=== PATIENT | female | born 1960 | race Caucasian/White ===

== ENCOUNTER 2016-07-29 12:15 | Outpatient (CLI) | payer OTHER | END 2016-07-29 12:16 | disposition home or self-care (01) | DX: M48.06 Spinal stenosis, lumbar region (principal); M51.16 Intervertebral disc disorders with radiculopathy, lumbar region ==

== ENCOUNTER 2017-03-20 08:22 | Outpatient (CLI) | payer OTHER ==
[2017-03-20 09:21] LABS: HCT - HEMATOCRIT 39.9 % (37.0-47.0); HGB - HEMOGLOBIN 13.4 g/dL (12.0-16.0); MEAN CORPUSCULAR HEMOGLOBIN 28.8 pg (27.0-31.0); MEAN CORPUSCULAR HGB CONC 33.7 g/dL (32.0-36.0); MEAN CORPUSCULAR VOLUME 85.5 fL (81.0-99.0); RED BLOOD COUNT 4.66 10^6/uL (4.20-5.40); RED CELL DISTRIBUTION WIDTH 13.3 % (12.0-15.0); WHITE BLOOD COUNT 8.7 x10^3/uL (4.8-10.8)
== END 2017-03-20 08:23 | disposition home or self-care (01) ==
LOC: LAB 08:22
PROVIDERS: ATTEND Orthopaedic Surgery
DX: Z01.812 Encounter for preprocedural laboratory examination (principal)
CPT/HCPCS: 36415

== ENCOUNTER 2017-07-31 19:08 | Outpatient (CLI) | payer OTHER ==
--- NOTE | 2017-08-01 10:49 | Ultrasound Report ---
DATE OF SERVICE: 07/31/2017 THYROID ULTRASOUND: 07/31/2017 CLINICAL INDICATION: Followup thyroid nodules. TECHNIQUE: Real-time scanning was performed with personal financial representative static images obtained. COMPARISON: 12/08/2015 FINDINGS: The right lobe measures 5.0 x 1.7 x 1.6 cm, and the left lobe measures 4.7 x 2.1 x 2.0 cm. Multiple tiny cysts are again noted bilaterally. The spongiform nodule in the left upper pole now measures 2.1 x 1.3 x 1.2 cm. No new suspicious lesion is identified. IMPRESSION: Stable thyroid cysts and spongiform nodule in the upper pole of the left lobe. No significant interval change from 12/08/2015. TD: 08/01/2017 11:48
== END 2017-07-31 19:09 | disposition home or self-care (01) ==
LOC: DI 19:08
PROVIDERS: ATTEND Internal Medicine Endocrinology, Diabetes & Metabolism
DX: E04.2 Nontoxic multinodular goiter (principal)
CPT/HCPCS: 76536

== ENCOUNTER 2017-08-14 07:59 | Outpatient (CLI) | payer OTHER ==
[2017-08-14 08:20] LABS: BASOPHILS # (AUTO) 0.1 10^3/uL (0.0-0.1); BASOPHILS % (AUTO) 1.2 %; EOSINOPHILS # (AUTO) 0.2 10^3/uL (0.0-0.7); EOSINOPHILS % (AUTO) 1.9 %; HGB - HEMOGLOBIN 13.3 g/dL (12.0-16.0); LYMPHOCYTES # (AUTO) 2.4 10^3/uL (1.5-3.5); LYMPHOCYTES % (AUTO) 25.8 %; MEAN CORPUSCULAR HEMOGLOBIN 28.8 pg (27.0-31.0); MEAN CORPUSCULAR HGB CONC 33.9 g/dL (32.0-36.0); MEAN CORPUSCULAR VOLUME 84.9 fL (81.0-99.0); MEAN PLATELET VOLUME 7.8 fL (7.9-10.8); MONOCYTES # (AUTO) 0.6 10^3/uL (0.0-1.0); NEUTROPHILS # (AUTO) 5.8 10^3/uL (1.5-6.6); NEUTROPHILS % (AUTO) 64.1 %; PLT - PLATELET COUNT 343 10^3/uL (130-450); RED BLOOD COUNT 4.61 10^6/uL (4.20-5.40); RED CELL DISTRIBUTION WIDTH 13.7 % (12.0-15.0); WHITE BLOOD COUNT 9.1 x10^3/uL (4.8-10.8)
[2017-08-14 08:42] LABS: ALBUMIN/GLOBULIN RATIO 1.2 (1.0-2.2); ALKALINE PHOSPHATASE 70 IU/L (42-121); ALT ALANINE AMINOTRANSFERASE 25 IU/L (10-60); AST ASPARTATE AMINOTRANSFERASE 20 IU/L (10-42); BILIRUBIN,TOTAL 0.5 mg/dL (0.2-1.0); BUN - BLOOD UREA NITROGEN 22 mg/dL (6-20); CALCIUM 9.6 mg/dL (8.5-10.3); CARBON DIOXIDE - CO2 25 mmol/L (21-32); CHLORIDE 104 mmol/L (101-111); CHOL/HDL RATIO 3.6 (<4.4); CHOLESTEROL 203 mg/dL; CREATININE 0.8 mg/dL (0.4-1.0); GFR - MDRD 74 (>89); GLUCOSE 103 mg/dL (70-100); HDL CHOLESTEROL 56 mg/dL; LDL CHOLESTEROL,CALCULATED 132 mg/dL; LDL/HDL RATIO 2.4 (<4.4); SODIUM 139 mmol/L (135-145); TOTAL PROTEIN 7.3 g/dL (6.7-8.2); VLDL CHOLESTEROL 15 mg/dL
== END 2017-08-14 08:00 | disposition home or self-care (01) ==
LOC: LAB 07:59
PROVIDERS: ATTEND Nurse Practitioner Primary Care
DX: M81.0 Age-related osteoporosis without current pathological fracture (principal); E55.9 Vitamin D deficiency, unspecified; Z79.899 Other long term (current) drug therapy; E04.2 Nontoxic multinodular goiter; E78.5 Hyperlipidemia, unspecified
CPT/HCPCS: 36415; 80053; 80061; 82306; 83721; 84443; 85025

== ENCOUNTER 2017-08-14 10:21 | Emergency (ER) | payer OTHER ==
[2017-08-14 10:29] VITALS: BP 148/96
--- NOTE | 2017-08-14 10:55 | ED Physician Documentation ---
PD HPI CHEST PAIN - Stated complaint Stated Complaint: CHEST DISCOMFORT - Chief complaint Chief Complaint: Cardiac - History obtained from History obtained from: Patient - History of Present Illness Timing - onset: How many days ago (2) Timing - onset during: Rest Timing - duration: Days (2) Timing - details: Gradual onset, Still present Quality: Pressure, Indigestion Location: Substernal Radiation: Back Improved by: Rest Worsened by: Exertion, Movement Associated symptoms: Shortness of air, Diaphoresis, Feeling faint / dizzy Similar symptoms before: Has not had sx before Recently seen: Clinic - Additional information Additional information: Previously well 56-year-old female is sent to the emergency department by her primary care doctor after evaluation in the office with complaints of chest pain indigestion and diaphoresis and an electrocardiogram showing some masah- lateral T-wave inversions. She has not been ill with URI. She has a + family history with a brother that had bypass at 50 and both mother an father with stents. Review of Systems Constitutional: denies: Fever, Chills, Myalgias Eyes: denies: Decreased vision Ears: denies: Ear pain Nose: denies: Rhinorrhea / runny nose, Congestion Throat: denies: Sore throat Cardiac: reports: Chest pain / pressure. denies: Palpitations Respiratory: reports: Dyspnea. denies: Cough, Wheezing GI: denies: Abdominal Pain, Nausea, Vomiting : denies: Dysuria, Frequency Skin: denies: Rash, Lesions Musculoskeletal: reports: Back pain. denies: Neck pain, Extremity pain PD PAST MEDICAL HISTORY - Past Medical History Cardiovascular: None, High cholesterol Respiratory: Other Neuro: Headache/migraine Endocrine/Autoimmune: None GI: GERD : None HEENT: Chronic sinusitis Psych: Depression Musculoskeletal: Osteoporosis, Chronic back pain Derm: None Other Past Medical History: Thyroid nodule. 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, Hysterectomy - Present Medications Home Medications: Ambulatory Orders Medication Instructions Recorded Confirmed Alendronate [Fosamax] 1 tab PO ONCE 05/12/16 05/12/16 B Complex with Vitamin C [Vitamin 1 tab PO DAILY 05/12/16 05/15/16 B-Complex with Vit C] Calcium Carbonate [Calcium] 1 tab PO BID 05/12/16 05/15/16 Cholecalciferol (Vitamin D3) 1 tab PO DAILY 05/12/16 05/15/16 [Vitamin D3] Omeprazole [PriLOSEC] 20 mg PO BID 05/12/16 05/15/16 buPROPion [Wellbutrin Sr] 100 mg PO BID 05/12/16 05/15/16 - Allergies Allergies/Adverse Reactions: Allergies Allergy/AdvReac Type Severity Reaction Status Date / Time No Known Drug Allergies Allergy Verified 05/12/16 10:36 - Social History Does the pt smoke?: No Smoking Status: Never smoker Does the pt drink ETOH?: Yes - Immunizations Immunizations are current?: Yes - POLST Patient has POLST: No PD ED PE NORMAL - Vitals Vital signs reviewed: Yes (hypertensive) - General General: Alert and oriented X 3, No acute distress, Well developed/nourished - HEENT HEENT: Atraumatic, PERRL, EOMI - Neck Neck: Supple, no meningeal sign, No bony TTP - Cardiac Cardiac: RRR, No murmur - Respiratory Respiratory: No respiratory distress, Clear bilaterally - Abdomen Abdomen: Soft, Non tender - Back Back: No CVA TTP, No spinal TTP - Derm Derm: Normal color, Warm and dry, No rash - Extremities Extremities: No deformity, No edema - Neuro Neuro: Alert and oriented X 3, No motor deficit, No sensory deficit, Normal speech Eye Opening: Spontaneous Motor: Obeys Commands Verbal: Oriented GCS Score: 15 - Psych Psych: Normal mood, Normal affect Results - Vitals Vitals: Vital Signs - 24 hr 08/14/17 10:24 Temperature 36.5 C Heart Rate 87 Respiratory 14 Rate Blood Pressure 148/96 H O2 Saturation 99 Oxygen O2 Source Room air - EKG (time done) 1031 Rate: Rate (enter#) (76) Rhythm: NSR, LAE [place]: LAD QRS: Poor R wave progression Ischemia: Other (anterior and lateral T-wave inversions. ) Compare to prior EKG: Old EKG unavailable Computer interpretation: Agree with computer - Labs Labs: Laboratory Tests 08/14/17 08:15 Troponin I < 0.04 PD MEDICAL DECISION MAKING - ED course Complexity details: reviewed old records, reviewed results, re-evaluated patient , considered differential, d/w patient, d/w family ED course: 56-year-old previously well female with a positive family history of coronary artery disease has developed indigestion and exertional diaphoresis. She does not have elevation of her troponin she does have some T-wave inversions in the lateral leads and she will require risk stratification with exercise treadmill. Her primary Adriana Duarte is consulted in the case by phone and will make arrangements for her to get a stress test performed. Departure - Departure Disposition: 01 Home, Self Care Clinical Impression: Atypical chest pain Condition: Stable Instructions: ED Chest Pain Atypical Unkn Cause Follow-Up: Jia Plascencia ARNP [Primary Care Provider] - Comments: Today there is no evidence of cardiac damage despite your days of symptoms But because of your family history of coronary artery disease it is imperative that you have a stress test done. Follow-up with Adriana Duarte for scheduling this as soon as possible
--- NOTE | 2017-08-14 12:14 | XRAY Report ---
EXAM: CHEST RADIOGRAPHY EXAM DATE: 08/14/2017 11:39 AM. CLINICAL HISTORY: Chest pain. COMPARISON: None. TECHNIQUE: 2 views. FINDINGS: Lungs/Pleura: No focal opacities evident. No pleural effusion. No pneumothorax. Normal volumes. Mediastinum: Heart and mediastinal contours are unremarkable. IMPRESSION: No evidence of acute thoracic process [facility] Referring Provider Line: [phone] SITE ID: [id number]
== END 2017-08-14 12:25 | disposition home or self-care (01) ==
LOC: ED 10:21
DX: R07.89 Other chest pain (principal); Z82.49 Family history of ischemic heart disease and other diseases of the circulatory system; R94.31 Abnormal electrocardiogram [ECG] [EKG]; M81.0 Age-related osteoporosis without current pathological fracture; E55.9 Vitamin D deficiency, unspecified; Z79.899 Other long term (current) drug therapy; E04.2 Nontoxic multinodular goiter; E78.5 Hyperlipidemia, unspecified
CPT/HCPCS: 36415; 71046; 80053; 80061; 82306; 83721; 84443; 84484; 85025; 93005; 99282; 99284

== ENCOUNTER 2017-08-29 11:00 | Outpatient (CLI) | payer OTHER ==
[2017-08-29 14:15] VITALS: BP 142/86
--- NOTE | 2017-08-29 16:26 | Nuclear Medicine Report ---
EXAM: SINGLE-ISOTOPE EXERCISE STRESS TEST. SINGLE-ISOTOPE AND ONE-DAY REST/STRESS MYOCARDIAL PERFUSION SCAN S WITH TOMOGRAPHIC IMAGING, QUANTITATIVE ANALYSIS, WALL MOTION ANALYSIS AND CALCULATION OF EJECTION F RACTION. EXAM DATE: 08/29/2017 02:49 PM. CLINICAL HISTORY: Atypical chest pain, abnormal EKG. COMPARISON: None. TECHNIQUE: A rest myocardial perfusion scan was done with tomography after the intravenous administration of 10. 2 mCi Tc-99m sestamibi. After an appropriate delay, a treadmill exercise stress was performed according to department alleyo l. The patient exercised for 8 minutes and 14 seconds. The maximum heart rate was 178 bpm, which was 109% of the maximum predicted heart rate of 163 bpm. At approximately peak heart rate, 43.6 mCi of Tc -99m sestamibi was injected for stress myocardial perfusion scan. Motion correction was applied when appropriate. Gated tomographic images were obtained for wall motion analysis and computation of left ventricular e jection fraction. FINDINGS: No convincing fixed or reversible perfusion defects are evident. Wall motion analysis demonstrates no focal wall motion abnormality The left ventricular end-diastolic volume is 55 cc. The left ventricular end-systolic volume is 11 cc . The left ventricular ejection fraction is calculated to be 80%. IMPRESSION: 1. No scintigraphic findings to indicate myocardial ischemia. Negative for infarct. 2. Normal left ventricular ejection fraction of >65%. 3. Normal segmental and global wall motion. 4. Normal left ventricular cavity size, no change with stress. [facility] Referring Provider Line: [phone] SITE ID: [id number]
--- NOTE | 2017-08-31 10:27 | CARDIAC PROCEDURE NOTE ---
DATE OF SERVICE: 08/29/2017 Physician: Reid Miller MD PROCEDURE: Yasmany protocol treadmill performed for sestamibi myocardial imaging. INDICATIONS: A 56-year-old female with a very dramatic family history of coronary disease and a personal history of atypical chest pain. She also has some diffuse T-wave inversions at rest. PROCEDURE: The patient was exercised in the standard fashion into stage III, at which time she achieved well beyond her 85% predicted maximum heart rate. She remained in sinus rhythm throughout. She had no diagnostic ST depressions. Her resting T-wave inversions pseudonormalized into upright T waves during exercise and then returned to their previous state during recovery. She described having off and on twinges of chest discomfort during the day prior to the procedure as well as during the procedure, but there was no dominant or overwhelming chest heaviness or pain. IMPRESSION: Unremarkable treadmill performed on a woman with atypical chest pain, positive family history and personal history of resting T-wave inversions. See nuclear medicine report for details. TD: 08/29/2017 18:17 MTDTheo
== END 2017-08-29 11:01 | disposition home or self-care (01) ==
LOC: DI 11:00
PROVIDERS: ATTEND Physician Assistant Medical
DX: R07.89 Other chest pain (principal); E78.5 Hyperlipidemia, unspecified; R94.31 Abnormal electrocardiogram [ECG] [EKG]; Z82.49 Family history of ischemic heart disease and other diseases of the circulatory system
CPT/HCPCS: 78452; 93017; A9500

== ENCOUNTER 2017-09-26 15:37 | Outpatient (CLI) | payer OTHER ==
--- NOTE | 2017-09-27 14:00 | Mammography Report ---
BILATERAL SCREENING MAMMOGRAM: 09/26/2017 COMPARISON: Mammogram 06/09/2016. INDICATION: Screening. TECHNIQUE: Routine CC and MLO projections were obtained of the breasts. FINDINGS: There are scattered fibroglandular densities. No dominant mass, architectural distortion, or concerning cluster of microcalcifications are seen. IMPRESSION: 1. BIRADS CATEGORY 1 - NEGATIVE. 2. RECOMMEND ANNUAL SCREENING MAMMOGRAM. STANDARD QUALIFYING STATEMENTS: 1. This examination was reviewed with the aid of Computer-Aided Detection (CAD) . 2. A negative or benign imaging report should not delay biopsy if clinically suspicious findings are present. Consider surgical consultation if warranted. More than 5 % of cancers are not identified by imaging. 3. Dense breasts may obscure an underlying neoplasm. TD: 09/27/2017 14:00 MEG
== END 2017-09-26 15:38 | disposition home or self-care (01) ==
LOC: DI 15:37
PROVIDERS: ATTEND Nurse Practitioner Primary Care
DX: Z00.00 Encounter for general adult medical examination without abnormal findings (principal); Z12.31 Encounter for screening mammogram for malignant neoplasm of breast
CPT/HCPCS: 77067

== ENCOUNTER 2017-11-19 10:16 | Emergency (ER) | payer OTHER ==
[2017-11-19 11:03] LABS: BASOPHILS # (AUTO) 0.1 10^3/uL (0.0-0.1); BASOPHILS % (AUTO) 1.1 %; EOSINOPHILS # (AUTO) 0.1 10^3/uL (0.0-0.7); EOSINOPHILS % (AUTO) 1.5 %; HGB - HEMOGLOBIN 13.5 g/dL (12.0-16.0); LYMPHOCYTES # (AUTO) 2.1 10^3/uL (1.5-3.5); LYMPHOCYTES % (AUTO) 27.5 %; MEAN CORPUSCULAR HEMOGLOBIN 28.7 pg (27.0-31.0); MEAN CORPUSCULAR HGB CONC 33.7 g/dL (32.0-36.0); MEAN CORPUSCULAR VOLUME 85.2 fL (81.0-99.0); MEAN PLATELET VOLUME 8.2 fL (7.9-10.8); MONOCYTES # (AUTO) 0.8 10^3/uL (0.0-1.0); MONOCYTES % (AUTO) 9.8 %; NEUTROPHILS # (AUTO) 4.7 10^3/uL (1.5-6.6); NEUTROPHILS % (AUTO) 60.1 %; PLT - PLATELET COUNT 347 10^3/uL (130-450); RED BLOOD COUNT 4.71 10^6/uL (4.20-5.40); RED CELL DISTRIBUTION WIDTH 13.6 % (12.0-15.0); WHITE BLOOD COUNT 7.7 x10^3/uL (4.8-10.8)
[2017-11-19 11:15] LABS: ALBUMIN 4.3 g/dL (3.2-5.5); ALBUMIN/GLOBULIN RATIO 1.3 (1.0-2.2); BILIRUBIN,TOTAL 0.8 mg/dL (0.2-1.0); CALCIUM 9.3 mg/dL (8.5-10.3); CREATININE 0.9 mg/dL (0.4-1.0); TOTAL PROTEIN 7.5 g/dL (6.7-8.2)
--- NOTE | 2017-11-19 12:17 | ED Physician Documentation ---
PD HPI CHEST PAIN - Stated complaint Stated Complaint: CHEST PAIN/SOA - Chief complaint Chief Complaint: Cardiac - History obtained from History obtained from: Patient - History of Present Illness Timing - onset: Today (1 am and again at 8:30 am or so.), Last night (had some chest pain awaken her about 1 am and lasted 20-30 minutes. Improved when got up and walked around. Returned again this morning about 2-3 hours ago and was more persistent and just dull in low epigastric area.) Timing - onset during: Sleep (last night), Light activity (this morning) Timing - duration: Hours Timing - details: Abrupt onset, Still present Quality: Aching, Pain. No: Pressure, Tightness Location: Substernal, Upper back Radiation: No: Jaw, Neck Improved by: No: Rest Worsened by: Movement. No: Inspiration, Palpation Associated symptoms: Nausea. No: Shortness of air, Diaphoresis, Feeling faint / dizzy, General Weakness, Palpitations, Cough Similar symptoms before: No diagnosis (had similar a few months ago and had outpt nuclear stress test which was normal.) Recently seen: Clinic (had omprazole increased to 40 mg due to persistent reflux /heartburn symptoms.) Review of Systems Constitutional: denies: Fever, Chills Nose: denies: Rhinorrhea / runny nose, Congestion Throat: denies: Sore throat Cardiac: denies: Palpitations, Pedal edema, Calf pain Respiratory: denies: Dyspnea, Cough GI: reports: Abdominal Pain. 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, 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, Hysterectomy - Present Medications Home Medications: Ambulatory Orders Medication Instructions Recorded Confirmed B Complex with Vitamin C [Vitamin 1 tab PO DAILY 05/12/16 09/12/17 B-Complex with Vit C] Cholecalciferol (Vitamin D3) 6,000 units PO DAILY 05/12/16 09/12/17 [Vitamin D3] Omeprazole [PriLOSEC] 40 mg PO BID 05/12/16 09/12/17 Calcium Carbonate/Vitamin D3 1 tab PO DAILY 09/12/17 09/12/17 [Calcium 600-Vit D3 500 Softgel] Gabapentin [Neurontin] 600 mg PO DAILY 09/12/17 09/12/17 Ibuprofen 800 mg PO BID 09/12/17 09/12/17 Montelukast [Singulair] 10 mg PO DAILY 09/12/17 09/12/17 Multivitamin [Theragran] 1 tab PO DAILY 09/12/17 09/12/17 buPROPion [Wellbutrin Sr] 150 mg PO BID 09/12/17 09/12/17 Lidocaine Viscous 2% [Xylocaine 5 ml PO Q4H PRN #1 bottle 11/19/17 Viscous 2%] Pantoprazole [Protonix] 40 mg PO DAILY #30 tablet 11/19/17 Sucralfate 1 gm PO QID #40 tablet 11/19/17 - Allergies Allergies/Adverse Reactions: Allergies Allergy/AdvReac Type Severity Reaction Status Date / Time No Known Drug Allergies Allergy Verified 11/19/17 11:03 - Social History Does the pt smoke?: No Smoking Status: Never smoker Does the pt drink ETOH?: Yes - Immunizations Immunizations are current?: Yes - POLST Patient has POLST: No PD ED PE NORMAL - Vitals Vital signs reviewed: Yes - General General: Alert and oriented X 3, No acute distress, Well developed/nourished - HEENT HEENT: Pharynx benign - Neck Neck: Supple, no meningeal sign, No adenopathy - Cardiac Cardiac: RRR, No murmur - Respiratory Respiratory: No respiratory distress, Clear bilaterally - Abdomen Abdomen: Normal bowel sounds, Soft, Non distended, No organomegaly, Other (mild epigastric) - Derm Derm: Normal color, Warm and dry - Extremities Extremities: No deformity, No tenderness to palpate, No edema, No calf tenderness / cord - Neuro Neuro: Alert and oriented X 3, No motor deficit, Normal speech Results - Vitals Vitals: Oxygen O2 Source Room air - EKG (time done) 10:27 Rate: Rate (enter#) (77) Rhythm: NSR [place]: Normal Intervals: Normal CO QRS: Poor R wave progression Ischemia: Normal ST segments, T wave inversion (V2-3), Non specific changes (t flatteneing in lateral leads) Compare to prior EKG: Unchanged from prior EKG - Labs Labs: Laboratory Tests 11/19/17 11/19/17 11/19/17 10:59 10:59 10:59 WBC 7.7 RBC 4.71 Hgb 13.5 Hct 40.1 MCV 85.2 MCH 28.7 MCHC 33.7 RDW 13.6 Plt Count 347 MPV 8.2 Neut # 4.7 Lymph # 2.1 [place] # 0.8 Eos # 0.1 Baso # 0.1 Absolute Nucleated RBC 0.00 Nucleated RBC % 0.0 Sodium 138 Potassium 3.8 Chloride 105 Carbon Dioxide 24 Anion Gap 9.0 BUN 16 Creatinine 0.9 Estimated GFR (MDRD) 64 L Glucose 97 Calcium 9.3 Total Bilirubin 0.8 AST 26 ALT 27 Alkaline Phosphatase 73 Troponin I < 0.04 Total Protein 7.5 Albumin 4.3 Globulin 3.2 Albumin/Globulin Ratio 1.3 Lipase 23 11/19/17 13:31 WBC RBC Hgb Hct MCV MCH MCHC RDW Plt Count MPV Neut # Lymph # [place] # Eos # Baso # Absolute Nucleated RBC Nucleated RBC % Sodium Potassium Chloride Carbon Dioxide Anion Gap BUN Creatinine Estimated GFR (MDRD) Glucose Calcium Total Bilirubin AST ALT Alkaline Phosphatase Troponin I < 0.04 Total Protein Albumin Globulin Albumin/Globulin Ratio Lipase - Rads (name of study) chest Radiology: Prelim report reviewed (no acute process), EMP read contemporaneously PD MEDICAL DECISION MAKING - ED course Complexity details: reviewed results (no signs of ACS and she had had stress nuclear study several months ago, and no anginal pattern to pain. I feel she is low risk for ACS. ), considered differential, d/w patient Departure - Departure Disposition: 01 Home, Self Care Clinical Impression: Atypical chest pain, Acute epigastric pain Condition: Stable Record reviewed to determine appropriate education?: Yes Instructions: ED Epigastric Pain [facility] Follow-Up: Jia Plascencia ARNP [Primary Care Provider] - Prescriptions: Lidocaine Viscous 2% [Xylocaine Viscous 2%] 5 ml PO Q4H PRN #1 bottle PRN Reason: Pain Pantoprazole [Protonix] 40 mg PO DAILY #30 tablet Sucralfate 1 gm PO QID #40 tablet Comments: Swap out the omeprazole for pantoprazole and see if it works better. Also use the sucralfate 3 times a day to coat the stomach. Add antacids such as Mylanta and can use lidocaine with it if needed for pains. Right now there is no signs of heart attack or heart failure, gallbladder problems, pancreas problems. Presume it is gastritis or duodenitis and will treat it that way. Follow-up with your primary care later this week. Discharge Date/Time: 11/19/17 14:55
--- NOTE | 2017-11-19 12:30 | XRAY Report ---
EXAM: CHEST RADIOGRAPHY EXAM DATE: 11/19/2017 11:16 AM. CLINICAL HISTORY: Chest pain/palpitation. COMPARISON: 08/14/2017. TECHNIQUE: 2 views. FINDINGS: Lungs/Pleura: Lungs remain clear. No pleural effusion or pneumothorax. Normal volumes. Mediastinum: Heart and mediastinal contours are unremarkable. Other: No fracture evident. IMPRESSION: 1. Negative. No acute cardiopulmonary findings or change. [facility] Referring Provider Line: [phone] SITE ID: [id number]
--- NOTE | 2017-11-19 12:30 | XRAY Preliminary Report ---
Exam: XR CHEST 2 VIEW X-RAY IMPRESSION: 1. Negative. No acute cardiopulmonary findings or change. [facility] SITE ID: [id number]
[2017-11-19] MEDS ORDERED: LIDOCAINE VISCOUS 2% 15 ML UDC MM STA (12:36)
[2017-11-19] MEDS ORDERED: MAG HYDROX/AL HYDROX/SIMETH 30 ML UDC PO STA (12:36)
[2017-11-19] MEDS ORDERED: KETOROLAC 60 MG/2 ML VIAL IVP STA (12:37)
--- NOTE | 2017-11-19 13:28 | Ultrasound Report ---
RIGHT UPPER QUADRANT ULTRASOUND: 11/19/2017 CLINICAL INDICATION: Pain. TECHNIQUE: Real-time scanning was performed with human resources hr representative static images obtained. FINDINGS: The liver measures 14.6 cm. Hepatic echogenicity is increased, compatible with fatty infiltration. No focal parenchymal lesion or intrahepatic biliary dilatation is present. The common bile duct measures 2 mm. The gallbladder is normal. The right kidney measures 11.5 cm, and demonstrates no hydronephrosis. No free fluid is present. IMPRESSION: ECHOGENIC LIVER, COMPATIBLE WITH FATTY INFILTRATION. NO EVIDENCE OF CHOLELITHIASIS OR BILIARY OBSTRUCTION. TD: 11/19/2017 13:27
[2017-11-19 14:55] VITALS: BP 129/74
== END 2017-11-19 14:55 | disposition home or self-care (01) ==
LOC: ED 10:16
DX: R07.89 Other chest pain (principal); R10.13 Epigastric pain; I44.4 Left anterior fascicular block; E78.00 Pure hypercholesterolemia, unspecified
CPT/HCPCS: 36415; 71046; 76705; 80053; 83690; 84484; 85025; 93005; 96374; 99283; 99284; A9270

== ENCOUNTER 2017-11-26 11:33 | Outpatient (CLI) | payer OTHER ==
[2017-11-26] MEDS ORDERED: SINCALIDE 5 MCG VIAL ONE (12:11)
[2017-11-26] MEDS ORDERED: SINCALIDE 1.6 MCG in SODIUM CHLORIDE 0.9% 50 ML IV ONE (14:15)
--- NOTE | 2017-11-26 15:12 | Nuclear Medicine Report ---
EXAM: HEPATOBILIARY SCAN WITH CCK/KINEVAC ADMINISTRATION EXAM DATE: 11/26/2017 02:19 PM. CLINICAL HISTORY: GALLBLADDER PAIN. COMPARISON: Ultrasound exam dated 11/19/2017. TECHNIQUE: Following the intravenous administration of 4.99 mCi of Tc99m Mebrofenin, a hepatobiliary scan was done centered on the liver and gallbladder in multiple sequential images and projections. Following the intravenous administration of 1.68 mcg of CCK/ Kinevac over the course of approximately 60 minutes, dynamic imaging was done and the gallbladder ejection fraction was calculated. FINDINGS: Normal extraction of tracer from the blood pool indicating normal hepatocellular function. The liver size and shape is grossly within normal limits. There is activity visualized within the bile ducts, gallbladder, and small bowel within the first fadia r. With CCK administration, the gallbladder demonstrates an effective contraction. The gallbladder eject ion fraction is calculated to be 83%, well above the lower limit of normal of 38% for a 60-minute inj ection. The patient did not report symptoms after CCK administration. No evidence of enteric reflux into the stomach. No significant collection of tracer remaining in the common bile duct by the end of the study. IMPRESSION: 1. Patent cystic duct. 2. Patent common bile duct. 3. Negative for acute or chronic cholecystitis. 4. No enterogastric bile reflux. 5. Gallbladder ejection fraction of 83%. [facility] Referring Provider Line: [phone] SITE ID: [id number]
== END 2017-11-26 11:34 | disposition home or self-care (01) ==
LOC: DI 11:33
PROVIDERS: ATTEND Nurse Practitioner Primary Care
DX: K82.9 Disease of gallbladder, unspecified (principal)
CPT/HCPCS: 78227; A9537

== ENCOUNTER 2018-06-20 16:09 | Outpatient (CLI) | payer OTHER ==
--- NOTE | 2018-06-21 09:33 | XRAY Report ---
Reason: FOOT PAIN,RIGHT Procedure Date: 06/20/2018 Accession Number: [id number] / [id number] Procedure: XR - Foot 3 View RT CPT Code: FULL RESULT: EXAM: RIGHT FOOT RADIOGRAPHY EXAM DATE: 06/20/2018 04:25 PM. CLINICAL HISTORY: Foot pain, right. COMPARISON: None. TECHNIQUE: 3 views. FINDINGS: Bones: Mild inferior calcaneal enthesopathy is noted. No fractures or bone lesions. Joints: Normal. No subluxations. Soft Tissues: A surgical clip projects over the soft tissues above the calcaneus. No soft tissue swelling. IMPRESSION: No fracture, dislocation. [facility]
== END 2018-06-20 16:10 | disposition home or self-care (01) ==
LOC: DI 16:09
PROVIDERS: ATTEND Physician Assistant Medical
DX: M79.671 Pain in right foot (principal)

== ENCOUNTER 2019-01-17 16:47 | Outpatient (CLI) | payer BC ==
--- NOTE | 2019-01-20 19:25 | Ultrasound Report ---
Reason: BONE DISORER,MULTINODULAR THYROID GOITER Procedure Date: 01/17/2019 Accession Number: [id number] / [id number] Procedure: US - Head or Neck Soft Tissue CPT Code: FULL RESULT: EXAM: THYROID ULTRASOUND EXAM DATE: 01/17/2019 06:20 PM. CLINICAL HISTORY: BONE DISORDER, MULTINODULAR THYROID GOITER. COMPARISON: 07/31/2017. TECHNIQUE: Real time sonographic imaging of the thyroid was performed by the tube heater. Multiple data entry representative static images were saved for review. FINDINGS: THYROID GLAND: Right Lobe: 5 x 1.5 x 1.5 cm, volume 5.7 cc. Normal background echotexture. Right Lobe Nodules: - 6 x 4 x 7 mm well-defined partially cystic nodule at the mid to inferior aspect. This is unchanged. - 5 x 3 x 6 mm isoechoic mildly heterogeneous nodule at the lower pole, not significantly changed accounting for differences in scan technique. This lesion was not measured on the previous exam. - Additional small cystic lesion seen at the mid to upper pole. Left Lobe: 5.5 x 2.6 x 1.9 cm, volume 12.8 cc. Normal background echotexture. Left Lobe Nodules: - Lateral partially cystic nodule measures 1.4 x 0.9 x 0.7 cm. This appears similar to the previous exam and the lesion has low suspicion characteristics. - Heterogeneous central posterior mildly hypoechoic tissue appears to be similar to the previous exams and could be a conglomeration of nodules or one large nodule with estimated maximum diameter of approximately 2.5 cm. Isthmus: Unremarkable with a thickness of 0.4 cm AP. Isthmic Nodules: None. LYMPH NODES: No adenopathy demonstrated in the central or lateral compartment. OTHER: None. IMPRESSION: 1. Heterogeneous nodularity of the mid posterior aspect of the left lobe measuring up to about 2.5 cm. It is difficult to determine whether this is from multiple adjacent nodules. Nevertheless, this is essentially stable since 2016. 2. Lateral mid lobe partially cystic lesion on the left, low suspicion. 3. Benign minimal nodularities of the right lobe. Management recommendations are based on 2015 [place] [employer] Management Guidelines for Adult Patients with Thyroid Nodules and Differentiated Thyroid Cancer. [facility]
== END 2019-01-17 16:48 | disposition home or self-care (01) ==
LOC: DI 16:47
PROVIDERS: ATTEND Physician Assistant
DX: E04.2 Nontoxic multinodular goiter (principal); M89.9 Disorder of bone, unspecified
CPT/HCPCS: 76536

== ENCOUNTER 2019-02-06 15:28 | Outpatient (CLI) | payer BC ==
--- NOTE | 2019-02-07 09:25 | DEXA Report ---
Reason: BONE DISORER,MULTINODULAR THYROID GOITER Procedure Date: 02/06/2019 Accession Number: [id number] / [id number] Procedure: DEX - Dexa Spine and/or Hip CPT Code: FULL RESULT: EXAM: Dexa Spine and/or Hip DATE: 02/06/2019 3:51 PM CLINICAL HISTORY: BONE DISORDER,MULTINODULAR THYROID GOITER TECHNIQUE: Dual energy x-ray absorptiometry (DXA) was performed on a [email or web address] System. Regions measured are the AP Spine, femoral neck, and if needed forearm. COMPARISON: 02/28/2016. In accordance with the International Society for Clinical Densitometry (ISCD) guidelines, data from previous exams may be reanalyzed using current recommendations and techniques. This is done to allow a more accurate basis for comparison with the current study. FINDINGS: The data for the lumbar spine is as follows: BMD (g/cm/cm) T-SCORE Z-SCORE REGION L1 0.671 -3.8 -3.4 L2 0.899 -2.5 -2.1 L3 1.048 -1.3 -0.9 L4 0.973 -1.9 -1.5 TOTAL 0.908 -2.3 -1.9 NOTE: All evaluable vertebrae are used for classification The data for the hip is as follows: BMD (g/cm/cm) T-SCORE Z-SCORE REGION Neck 0.826 -1.5 -0.8 TOTAL 0.859 -1.2 -0.8 NOTE: The femoral neck or total proximal femur, whichever is lowest, is used for classification. DXA RESULTS SUMMARY: Spine SCAN DATE AGE BMD CHANGE VS CHANGE VS PREVIOUS PREVIOUS % [birth year]2019 [age] 0.908 0.043* 5.0* 02/28/2016 55.3 0.865 * Denotes significant change at the 95% confidence level. Denotes dissimilar scan types or analysis methods. DXA RESULTS SUMMARY: Hip SCAN DATE AGE BMD CHANGE VS CHANGE VS PREVIOUS PREVIOUS % [birth year]2019 58.3 0.859 0.029 3.5 02/28/2016 55.3 0.830 * Denotes significant change at the 95% confidence level. Denotes dissimilar scan types or analysis methods. IMPRESSION: THE WHO CLASSIFICATION BASED ON THE INTERNATIONAL REFERENCE STANDARD IS OSTEOPENIA. THE FRACTURE RISK IS INCREASED. RECOMMENDATION: Patients with diagnosis of osteoporosis or osteopenia should have regular bone mineral density assessment. For those eligible for Medicare, routine testing is allowed once every 2 years. Testing frequency can be increased for patients who have rapidly progressing disease or for those who are receiving medical therapy to restore bone mass. COMMENT: World Health Organization (WHO) definitions for osteoporosis and osteopenia: NORMAL BMD: T-score at -1.0 or higher, fracture risk is low OSTEOPENIA BMD: T-score between -1.0 and -2.5, fracture risk is increased. OSTEOPOROSIS BMD: T-score at -2.5 or lower, fracture risk is high. National Osteoporosis Foundation recommends: 1. Obtain adequate dietary calcium (at least 1200 mg per day) and vitamin D (400-800 international units per day). 2. Participate, as appropriate, in regular weightbearing and muscle-strengthening exercise. 3. Avoid tobacco use and reduce alcohol and caffeine intake. 4. For more detailed information see the website at www.NOF.org.
== END 2019-02-06 15:29 | disposition home or self-care (01) ==
LOC: DI 15:28
PROVIDERS: ATTEND Physician Assistant
DX: M85.89 Other specified disorders of bone density and structure, multiple sites (principal)
CPT/HCPCS: 77080

== ENCOUNTER 2019-05-02 05:25 | Outpatient (CLI) | payer BC | END 2019-05-02 05:26 | disposition critical access hospital (66) | LOC: EMS 05:25 | PROVIDERS: ATTEND Surgery | DX: R00.0 Tachycardia, unspecified (principal); R61 Generalized hyperhidrosis; M25.511 Pain in right shoulder | CPT/HCPCS: A0425; A0427 ==

== ENCOUNTER 2019-05-02 06:11 | Emergency (ER) | payer BC ==
[2019-05-02] MEDS ORDERED: ADENOSINE 6 MG/2 ML VIAL IVP STA (06:16)
[2019-05-02] MEDS ORDERED: SODIUM CHLORIDE 0.9% 1,000 ML IV ONE (06:19)
--- NOTE | 2019-05-02 06:27 | ED Physician Documentation ---
<Jon Ferro - Last Filed: 05/02/19 09:42> History of Present Illness - Stated complaint Stated Complaint: SVT - Chief complaint Chief Complaint: Cardiac PD PAST MEDICAL HISTORY - Present Medications Home Medications: Ambulatory Orders Medication Instructions Recorded Confirmed B Complex with Vitamin C [Vitamin 1 tab PO DAILY 05/12/16 09/12/17 B-Complex with Vit C] Cholecalciferol (Vitamin D3) 6,000 units PO DAILY 05/12/16 09/12/17 [Vitamin D3] Omeprazole [PriLOSEC] 40 mg PO BID 05/12/16 09/12/17 Calcium Carbonate/Vitamin D3 1 tab PO DAILY 09/12/17 09/12/17 [Calcium 600-Vit D3 500 Softgel] Gabapentin [Neurontin] 600 mg PO DAILY 09/12/17 09/12/17 Ibuprofen 800 mg PO BID 09/12/17 09/12/17 Montelukast [Singulair] 10 mg PO DAILY 09/12/17 09/12/17 Multivitamin [Theragran] 1 tab PO DAILY 09/12/17 09/12/17 buPROPion [Wellbutrin Sr] 150 mg PO BID 09/12/17 09/12/17 Lidocaine Viscous 2% [Xylocaine 5 ml PO Q4H PRN #1 bottle 11/19/17 Viscous 2%] Pantoprazole [Protonix] 40 mg PO DAILY #30 tablet 11/19/17 Sucralfate 1 gm PO QID #40 tablet 11/19/17 - Allergies Allergies/Adverse Reactions: Allergies Allergy/AdvReac Type Severity Reaction Status Date / Time No Known Drug Allergies Allergy Verified 05/02/19 06:17 PD MEDICAL DECISION MAKING - ED course Complexity details: reviewed old records, reviewed results, re-evaluated patient, considered differential, d/w patient, d/w family ED course: 58-year-old female with a positive family history of coronary artery disease in the 50s on both sides of her family has developed acute SVT this morning she was converted with the use of adenosine and she has had a mild elevation in her supersensitive troponin consistent with demand ischemia. I took further history from the patient and have reviewed her chart. She has had a prior nuclear stress test which was without evidence of ischemia or infarct more than 18 months ago. Since that time she has had episodes of SVT that did not require medical attention and she has had some episodes of chest pain that are not otherwise characterized. I have consulted the senior chemical process engineer Dr. Hernandez at [facility] and have made plans for outpatient follow-up. I do not believe the patient has acute coronary syndrome at this time but I do believe she needs further evaluation. Dr. Hernandez is in agreement with the plan and will follow up with the patient. Departure - Departure Disposition: 01 Home, Self Care Clinical Impression: SVT (supraventricular tachycardia) Condition: Good Instructions: ED Tachycardia Pat PSVT Follow-Up: JANNETH ALBA MD [Physician No Access] - Holiday,MARKUS Blackburn [Primary Care Provider] - Comments: You were seen today for a fast heart rhythm which appears to be SVT. Please follow-up with your primary care provider on this, if you develop recurrent symp toms such as chest pain, racing heart, lightheadedness, return to the emergency department. You may discuss with your primary care provider or senior chemical process engineer if you should start a medication for this, particularly if it is recurrent. We have consulted the senior chemical process engineer sewing machines salesperson at [facility], Dr. Alba and her office will contact you. You will need a referral and a call to your primary for this is required. Discharge Date/Time: 05/02/19 09:54 <Hernandez Phan - Last Filed: 05/04/19 02:21> History of Present Illness - Additonal information Additional information: This is a 58-year-old female who presents with chest discomfort and racing heart. She woke up this morning around 2 hours prior to arrival with diaphoresis, feeling that her heart racing and also the pain between her shoulder blades. EMS was called when they arrived they found her to be tachycar dic in the 160s. The rhythm strip showed what was appeared to be in SVT. She received no medications in route. She states that she had an similar episode to this in the past, but she was in [place] when it happened and she did not seek care, it passed on its own. She subsequently had a cardiac work-up which was unremarkable. She denies any syncope. 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, 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, Hysterectomy - Social History Does the pt smoke?: No Smoking Status: Never smoker Does the pt drink ETOH?: Yes - Immunizations Immunizations are current?: Yes - POLST Patient has POLST: No PD ED PE NORMAL - Vitals Vital signs reviewed: Yes - General General: Alert and oriented X 3 - Neck Neck: Supple, no meningeal sign - Cardiac Cardiac: Other (Tachycardia, regular rhythm) - Respiratory Respiratory: Clear bilaterally - Abdomen Abdomen: Soft, Non distended - Derm Derm: Warm and dry - Extremities Extremities: No deformity - Neuro Neuro: Alert and oriented X 3 - Psych Psych: Normal mood, Normal affect Results - Vitals Vitals: Oxygen O2 Source Room air - EKG (time done) 6:16 Other comments: Other comments (Rate 170, rhythm appears to be supraventricular tachycardia, there are ST segment depressions laterally which may be rate related.) 5:58 Other comments: Other comments (Rate 88, rhythm sinus, there is left axis deviation, there is slight ST depression laterally, but no change from prior EKG on 11/19/2017. Intervals within normal limits.) - Labs Labs: Laboratory Tests 05/02/19 05/02/19 05/02/19 06:27 06:27 06:27 WBC 10.9 H RBC 4.96 Hgb 14.3 Hct 43.0 MCV 86.7 MCH 28.8 MCHC 33.3 RDW 13.2 Plt Count 438 MPV 9.9 Neut # (Auto) 7.0 H Lymph # (Auto) 2.9 [place]acken # (Auto) 0.8 Eos # (Auto) 0.2 Baso # (Auto) 0.1 Absolute Nucleated RBC 0.00 Nucleated RBC % 0.0 Sodium 142 Potassium 3.7 Chloride 107 Carbon Dioxide 23 Anion Gap 12.0 BUN 15 Creatinine 1.1 H Estimated GFR (MDRD) 51 L Glucose 130 H Calcium 9.6 Total Bilirubin 0.7 AST 20 ALT 19 Alkaline Phosphatase 70 Troponin I High Sens 5.8 Total Protein 7.4 Albumin 3.9 Globulin 3.5 Albumin/Globulin Ratio 1.1 Lipase 41 05/02/19 08:15 WBC RBC Hgb Hct MCV MCH MCHC RDW Plt Count MPV Neut # (Auto) Lymph # (Auto) [place]ack[place] # (Auto) Eos # (Auto) Baso # (Auto) Absolute Nucleated RBC Nucleated RBC % Sodium Potassium Chloride Carbon Dioxide Anion Gap BUN Creatinine Estimated GFR (MDRD) Glucose Calcium Total Bilirubin AST ALT Alkaline Phosphatase Troponin I High Sens 41.2 H* Total Protein Albumin Globulin Albumin/Globulin Ratio Lipase - Rads (name of study) CXR Radiology: Other (Normal 2 view chest) PD MEDICAL DECISION MAKING - ED course Complexity details: considered differential (SVT, ACS, dysrhytmia, a -flutter) ED course: Patient arrives tachycardic, but hemodynamically stable. EKG shows a likely supraventricular tachycardia. 6 mg of adenosine was given with conversion to sinus rhythm, and resolution of patient's symptoms. She did have some chest pain during the episode of SVT, and she has cardiac risk factors, her repeat EKG does show some lateral mild ST depressions, however these appear similar to a past EKG. Initial troponin is negative. I discussed that she appeared to have a SVT, given her risk factors and the EKG, I think she warrants a second troponin. On reevaluation patient continues to feel well, is asymptomatic, and has a sinus rhythm with normal rate. I discussed plan of care with the patient, who is in agreement. Patient was signed out to Dr. Ferro with the plan to follow-up on the second troponin. If negative patient can discharge home with outpatient cardiology follow up, if it is elevated would consider discussion with cardiology or observation.
[2019-05-02 06:33] LABS: BASOPHILS # (AUTO) 0.1 10^3/uL (0.0-0.1); BASOPHILS % (AUTO) 0.7 %; EOSINOPHILS # (AUTO) 0.2 10^3/uL (0.0-0.7); EOSINOPHILS % (AUTO) 1.6 %; HGB - HEMOGLOBIN 14.3 g/dL (12.0-16.0); LYMPHOCYTES # (AUTO) 2.9 10^3/uL (1.5-3.5); LYMPHOCYTES % (AUTO) 26.1 %; MEAN CORPUSCULAR HEMOGLOBIN 28.8 pg (27.0-31.0); MEAN CORPUSCULAR HGB CONC 33.3 g/dL (32.0-36.0); MEAN CORPUSCULAR VOLUME 86.7 fL (81.0-99.0); MEAN PLATELET VOLUME 9.9 fL (7.9-10.8); MONOCYTES # (AUTO) 0.8 10^3/uL (0.0-1.0); MONOCYTES % (AUTO) 7.6 %; NEUTROPHILS % (AUTO) 63.6 %; PLT - PLATELET COUNT 438 10^3/uL (130-450); RED BLOOD COUNT 4.96 10^6/uL (4.20-5.40); RED CELL DISTRIBUTION WIDTH 13.2 % (12.0-15.0); WHITE BLOOD COUNT 10.9 x10^3/uL (4.8-10.8)
[2019-05-02 06:46] LABS: ALBUMIN 3.9 g/dL (3.2-5.5); ALBUMIN/GLOBULIN RATIO 1.1 (1.0-2.2); BILIRUBIN,TOTAL 0.7 mg/dL (0.2-1.0); CALCIUM 9.6 mg/dL (8.5-10.3); CREATININE 1.1 mg/dL (0.4-1.0); TOTAL PROTEIN 7.4 g/dL (6.7-8.2)
--- NOTE | 2019-05-02 07:17 | XRAY Report ---
Reason: Cough, SVT Procedure Date: 05/02/2019 Accession Number: [id number] / [id number] Procedure: XR - Chest 2 View X-Ray CPT Code: 65160 FULL RESULT: EXAM: CHEST RADIOGRAPHY EXAM DATE: 05/02/2019 06:52 AM HISTORY: Cough, SVT COMPARISON: CHEST 2 VIEW 11/19/2017 10:38 AM TECHNIQUE: Two Views FINDINGS: Lungs/Pleura: The lungs are clear. No consolidation, edema or pleural effusion. Cardiomediastinal silhouette: Unremarkable accounting for technique. Other: None. IMPRESSION: Normal two view chest. RADIA
[2019-05-02 09:45] VITALS: BP 170/103
== END 2019-05-02 09:54 | disposition home or self-care (01) ==
LOC: EDUNIT# → ED 06:11
DX: I47.1 Supraventricular tachycardia (principal)
CPT/HCPCS: 36415; 71046; 80053; 83690; 84484; 85025; 93005; 96361; 96374; 99284; J0153

== ENCOUNTER 2019-05-15 03:07 | Outpatient (CLI) | payer BC | END 2019-05-15 03:08 | disposition short-term general hospital (02) | LOC: EMS 03:07 | PROVIDERS: ATTEND Surgery | DX: R07.9 Chest pain, unspecified (principal) | CPT/HCPCS: A0425; A0427 ==

== ENCOUNTER 2019-07-17 06:39 | Day surgery (SDC) | payer BC ==
[2019-07-17] MEDS ORDERED: LACTATED RINGERS 1,000 ML IV ONE (06:50)
[2019-07-17] MEDS ORDERED: LIDO GARGLE 30 ML BOTTLE ONE (08:30)
[2019-07-17] MEDS ORDERED: fentaNYL 250 MCG/5 ML VIAL IVP ONE (08:40)
[2019-07-17] MEDS ORDERED: MIDAZOLAM 2 MG/2 ML VIAL IVP ONE (08:40)
[2019-07-17] MEDS ORDERED: LIDO GARGLE 30 ML BOTTLE PO ONE (08:46)
[2019-07-17 09:30] VITALS: BP 100/60
== END 2019-07-17 06:40 | disposition home or self-care (01) ==
LOC: SDS 06:39
PROVIDERS: ATTEND Surgery
PROC: 0DB68ZX Excision of Stomach, Via Natural or Artificial Opening Endoscopic, Diagnostic (ICD-10-PCS; 2019-07-17)
PROC: 0DB48ZX Excision of Esophagogastric Junction, Via Natural or Artificial Opening Endoscopic, Diagnostic (ICD-10-PCS; 2019-07-17)
PROC: 0DB98ZX Excision of Duodenum, Via Natural or Artificial Opening Endoscopic, Diagnostic (ICD-10-PCS; principal; 2019-07-17 08:15)
DX: K21.9 Gastro-esophageal reflux disease without esophagitis (principal); R13.10 Dysphagia, unspecified; K29.70 Gastritis, unspecified, without bleeding; K22.8 Other specified diseases of esophagus
CPT/HCPCS: 87081

== ENCOUNTER 2020-05-05 15:42 | Emergency (ER) | payer OTHER, BC ==
[2020-05-05 15:49] VITALS: BP 139/80
--- NOTE | 2020-05-05 16:00 | ED Physician Documentation ---
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 with a 27-gauge needle that had been used for anesthetic for patient not known to have any communicable illnesses just prior to arrival.) Review of Systems Constitutional: reports: Reviewed and negative Nose: reports: Reviewed and negative Throat: reports: Reviewed and negative PD PAST MEDICAL HISTORY - Past Medical History Cardiovascular: High cholesterol, Other Respiratory: Other Endocrine/Autoimmune: None GI: GERD, Colon polyps : None HEENT: Chronic sinusitis Psych: Depression Musculoskeletal: Osteoporosis Derm: None - Past Surgical History Past Surgical History: Yes General: Colonoscopy 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: 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: No Smoking Status: Never smoker Does the pt drink ETOH?: Yes Does the pt have substance abuse?: No - Immunizations Immunizations are current?: Yes - POLST Patient has POLST: No PD ED PE NORMAL - Vitals Vital signs reviewed: Yes - General General: Alert and oriented X 3, No acute distress - Neuro Neuro: Alert and oriented X 3, Normal speech - Psych Psych: Normal mood, Normal affect Results - Vitals Vitals: Vital Signs - 24 hr 05/05/20 15:46 Temperature 36.2 C L Heart Rate 73 Respiratory 14 Rate Blood Pressure 139/80 H O2 Saturation 98 Oxygen O2 Source Room air PD MEDICAL DECISION MAKING - ED course ED course: We discussed and I offered HIV postexposure prophylaxis but given the exceedingly low risk of the contacts she declined which is reasonable. Departure - Departure Disposition: 01 Home, Self Care Clinical Impression: Needlestick injury accident with exposure to body fluid Condition: Good Record reviewed to determine appropriate education?: Yes Instructions: ED Body Fluid Exp HC Worker Comments: We are performing baseline testing for hepatitis and HIV today, employee health should call you if abnormal. You need repeat testing in 2 months and 6 months to make sure you do not seroconvert. Return as needed.
[2020-05-06 13:29] LABS: HEPATITIS C ANTIBODY NON-REACTIVE (NON-REACTIVE)
[2020-05-06 13:43] LABS: HIV AG/AB 4TH GEN NON-REACTIVE (NON-REACTIVE)
== END 2020-05-05 16:10 | disposition home or self-care (01) ==
LOC: ED 15:42
DX: Z20.89 Contact with and (suspected) exposure to other communicable diseases (principal); W46.0XXA Contact with hypodermic needle, initial encounter; Y93.F9 Activity, other caregiving; Y92.238 Other place in hospital as the place of occurrence of the external cause; Y99.0 Civilian activity done for income or pay
CPT/HCPCS: 36415; 86317; 86803; 87389; 99282; 99283

== ENCOUNTER 2020-08-13 08:00 | Outpatient (CLI) | payer BC ==
[2020-08-13 08:38] LABS: BASOPHILS # (AUTO) 0.1 10^3/uL (0.0-0.1); BASOPHILS % (AUTO) 0.8 %; EOSINOPHILS # (AUTO) 0.4 10^3/uL (0.0-0.7); EOSINOPHILS % (AUTO) 4.5 %; LYMPHOCYTES # (AUTO) 2.3 10^3/uL (1.5-3.5); LYMPHOCYTES % (AUTO) 27.9 %; MEAN CORPUSCULAR HGB CONC 31.9 g/dL (32.0-36.0); MEAN CORPUSCULAR VOLUME 90.9 fL (81.0-99.0); MEAN PLATELET VOLUME 9.9 fL (7.9-10.8); MONOCYTES # (AUTO) 0.6 10^3/uL (0.0-1.0); MONOCYTES % (AUTO) 7.3 %; NEUTROPHILS # (AUTO) 4.9 10^3/uL (1.5-6.6); NEUTROPHILS % (AUTO) 59.1 %; PLT - PLATELET COUNT 320 10^3/uL (130-450); RED BLOOD COUNT 4.49 10^6/uL (4.20-5.40); RED CELL DISTRIBUTION WIDTH 12.8 % (12.0-15.0); WHITE BLOOD COUNT 8.2 x10^3/uL (4.8-10.8)
[2020-08-13 09:22] LABS: ALBUMIN/GLOBULIN RATIO 1.4 (1.0-2.2); ALKALINE PHOSPHATASE 70 IU/L (42-121); ALT ALANINE AMINOTRANSFERASE 19 IU/L (10-60); AST ASPARTATE AMINOTRANSFERASE 17 IU/L (10-42); BILIRUBIN,TOTAL 0.5 mg/dL (0.2-1.0); BUN - BLOOD UREA NITROGEN 16 mg/dL (6-20); CALCIUM 9.9 mg/dL (8.5-10.3); CARBON DIOXIDE - CO2 25 mmol/L (21-32); CHLORIDE 106 mmol/L (101-111); CHOL/HDL RATIO 3.4 (<4.4); CHOLESTEROL 220 mg/dL; GLUCOSE 102 mg/dL (70-100); HDL CHOLESTEROL 65 mg/dL; LDL CHOLESTEROL,CALCULATED 141 mg/dL; LDL/HDL RATIO 2.2 (<4.4); TOTAL PROTEIN 6.9 g/dL (6.7-8.2); VLDL CHOLESTEROL 14 mg/dL
[2020-08-13 11:55] LABS: HEMOGLOBIN A1c% 5.5 % (4.27-6.07)
== END 2020-08-13 23:59 | disposition home or self-care (01) ==
LOC: LAB 08:00
PROVIDERS: ATTEND Physician Assistant
DX: Z00.00 Encounter for general adult medical examination without abnormal findings (principal); R03.0 Elevated blood-pressure reading, without diagnosis of hypertension; R73.9 Hyperglycemia, unspecified
CPT/HCPCS: 36415; 80053; 80061; 83036; 83721; 84443; 85025

== ENCOUNTER 2020-09-02 20:38 | Emergency (ER) | payer BC ==
[2020-09-02 21:10] LABS: BASOPHILS # (AUTO) 0.1 10^3/uL (0.0-0.1); BASOPHILS % (AUTO) 0.7 %; EOSINOPHILS # (AUTO) 0.2 10^3/uL (0.0-0.7); EOSINOPHILS % (AUTO) 2.4 %; HGB - HEMOGLOBIN 13.2 g/dL (12.0-16.0); LYMPHOCYTES # (AUTO) 3.2 10^3/uL (1.5-3.5); LYMPHOCYTES % (AUTO) 31.7 %; MEAN CORPUSCULAR HEMOGLOBIN 29.3 pg (27.0-31.0); MEAN CORPUSCULAR HGB CONC 32.7 g/dL (32.0-36.0); MEAN CORPUSCULAR VOLUME 89.6 fL (81.0-99.0); MEAN PLATELET VOLUME 9.9 fL (7.9-10.8); MONOCYTES # (AUTO) 0.7 10^3/uL (0.0-1.0); MONOCYTES % (AUTO) 6.8 %; NEUTROPHILS # (AUTO) 5.9 10^3/uL (1.5-6.6); NEUTROPHILS % (AUTO) 58.2 %; PLT - PLATELET COUNT 354 10^3/uL (130-450); RED BLOOD COUNT 4.51 10^6/uL (4.20-5.40); RED CELL DISTRIBUTION WIDTH 12.9 % (12.0-15.0); WHITE BLOOD COUNT 10.2 x10^3/uL (4.8-10.8)
--- NOTE | 2020-09-02 21:21 | XRAY Report ---
PROCEDURE: Chest 1 View X-Ray INDICATIONS: Chest Pain TECHNIQUE: One view of the chest was acquired. COMPARISON: 05/02/2019 FINDINGS: Surgical changes and devices: None. Lungs and pleura: No pleural effusions or pneumothorax. Lungs are clear. Mediastinum: Mediastinal contours appear normal. Heart size is normal. Bones and chest wall: No suspicious bony lesions. Overlying soft tissues appear unremarkable. IMPRESSION: No acute process. Reviewed by: Cathy Escalante MD on 09/02/2020 9:20 PM [facility] Approved by: Cathy Escalante MD on 09/02/2020 9:20 PM [facility] Station ID: [id number]
[2020-09-02 21:28] LABS: ALBUMIN 4.1 g/dL (3.2-5.5); ALBUMIN/GLOBULIN RATIO 1.2 (1.0-2.2); BILIRUBIN,TOTAL 0.8 mg/dL (0.2-1.0); CALCIUM 9.8 mg/dL (8.5-10.3); TOTAL PROTEIN 7.5 g/dL (6.7-8.2)
--- NOTE | 2020-09-02 21:30 | ED Physician Documentation ---
PD HPI CHEST PAIN - Stated complaint Stated Complaint: DIZZY, CHEST PRESSURE, RT SHOULDER PX - Chief complaint Chief Complaint: Cardiac - History obtained from History obtained from: Patient - History of Present Illness Timing - onset: How many hours ago (1), Today Timing - onset during: Rest Timing - duration: Hours (1) Timing - details: Abrupt onset Quality: Tightness, Other (she felt onset of chest pressure, nausea and lightheaded. Has had occasions of chest pain right shoulder and sternal area few times the past several days.) Location: Substernal, Right chest Radiation: Right upper extremity (shoulder) Worsened by: No: Exertion, Inspiration, Movement Associated symptoms: Nausea, Feeling faint / dizzy, General Weakness. No: Shortness of air, Palpitations, Cough Similar symptoms before: No diagnosis (episodes of SVT in the past, but this was different. Did not feel heart rate fast.) Recently seen: Not recently seen Review of Systems Constitutional: denies: Fever Nose: denies: Rhinorrhea / runny nose, Congestion Throat: denies: Sore throat Cardiac: reports: Chest pain / pressure. denies: Palpitations, Pedal edema, Calf pain Respiratory: denies: Dyspnea, Cough GI: reports: Nausea. 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, Hysterectomy - Present Medications Home Medications: Ambulatory Orders Medication Instructions Recorded Confirmed Montelukast [Singulair] 10 mg PO DAILY 09/12/17 07/17/19 buPROPion [Wellbutrin Sr] 450 mg PO BID 09/12/17 09/02/20 Metoprolol Succinate 40 mg PO BID 07/17/19 09/02/20 Pantoprazole [Protonix] 20 mg PO DAILY 07/17/19 09/02/20 Aspirin [Aspirin EC] 81 mg PO DAILY 09/02/20 09/02/20 Lidocaine Viscous 2% [Xylocaine 5 ml PO Q4H PRN #100 ml 09/02/20 Viscous 2%] - Allergies Allergies/Adverse Reactions: Allergies Allergy/AdvReac Type Severity Reaction Status Date / Time No Known Drug Allergies Allergy Verified 09/02/20 20:43 - Social History Does the pt smoke?: No Smoking Status: Never smoker Does the pt drink ETOH?: Yes Does the pt have substance abuse?: No - Immunizations Immunizations are current?: Yes - POLST Patient has POLST: No PD ED PE NORMAL - Vitals Vital signs reviewed: Yes - General General: Alert and oriented X 3, No acute distress, Well developed/nourished - Neck Neck: Supple, no meningeal sign, No adenopathy - Cardiac Cardiac: RRR, No murmur - Respiratory Respiratory: Clear bilaterally - Abdomen Abdomen: Soft, Non tender - Derm Derm: Normal color, Warm and dry - Extremities Extremities: No tenderness to palpate, Normal ROM s pain, No edema, No calf tenderness / cord - Neuro Neuro: Alert and oriented X 3, No motor deficit, Normal speech Results - Vitals Vitals: Vital Signs - 24 hr 09/02/20 09/02/20 09/02/20 20:43 20:49 22:47 Temperature 36.6 C Heart Rate 72 68 62 Respiratory 16 25 H 20 Rate Blood Pressure 150/63 H 137/83 H 131/73 H O2 Saturation 100 69 L 96 09/02/20 23:33 Temperature Heart Rate 66 Respiratory 15 Rate Blood Pressure 110/88 H O2 Saturation 99 Oxygen O2 Source Room air - EKG (time done) 20:43 Rate: Rate (enter#) (72) Rhythm: NSR [place]: Normal Intervals: Normal OK QRS: Normal Ischemia: Normal ST segments. No: ST elevation c/w ischemia, ST depression - Labs Labs: Laboratory Tests 09/02/20 09/02/20 09/02/20 21:06 21:06 21:06 WBC 10.2 RBC 4.51 Hgb 13.2 Hct 40.4 MCV 89.6 MCH 29.3 MCHC 32.7 RDW 12.9 Plt Count 354 MPV 9.9 Neut # (Auto) 5.9 Lymph # (Auto) 3.2 [place] # (Auto) 0.7 Eos # (Auto) 0.2 Baso # (Auto) 0.1 Absolute Nucleated RBC 0.00 Nucleated RBC % 0.0 Sodium 143 Potassium 3.8 Chloride 103 Carbon Dioxide 24 Anion Gap 16.0 H BUN 21 H Creatinine 1.0 Estimated GFR (MDRD) 57 L Glucose 108 H Calcium 9.8 Total Bilirubin 0.8 AST 20 ALT 20 Alkaline Phosphatase 66 Troponin I High Sens < 2.3 L Total Protein 7.5 Albumin 4.1 Globulin 3.4 Albumin/Globulin Ratio 1.2 Lipase 40 09/02/20 22:30 WBC RBC Hgb Hct MCV MCH MCHC RDW Plt Count MPV Neut # (Auto) Lymph # (Auto) [place] # (Auto) Eos # (Auto) Baso # (Auto) Absolute Nucleated RBC Nucleated RBC % Sodium Potassium Chloride Carbon Dioxide Anion Gap BUN Creatinine Estimated GFR (MDRD) Glucose Calcium Total Bilirubin AST ALT Alkaline Phosphatase Troponin I High Sens < 2.3 L Total Protein Albumin Globulin Albumin/Globulin Ratio Lipase - Rads (name of study) chest xray Radiology: Prelim report reviewed (no acute results), See rad report PD MEDICAL DECISION MAKING - ED course Complexity details: reviewed results, considered differential (normal labs, ECG, CXR. Some improved with GI cocktail. ), d/w patient Departure - Departure Disposition: Home, Self Care Clinical Impression: Chest discomfort Gastroesophageal reflux disease Qualifiers: Esophagitis presence: esophagitis presence not specified Qualified Code(s): K21.9 - Gastro-esophageal reflux disease without esophagitis Clinical Impression: (Ruled Out): Myocardial infarction Condition: Stable Record reviewed to determine appropriate education?: Yes Follow-Up: Marcela Robles PA-C [Primary Care Provider] - Prescriptions: Lidocaine Viscous 2% [Xylocaine Viscous 2%] 5 ml PO Q4H PRN #100 ml PRN Reason: Pain Comments: Continue your current medications including pantoprazole. Add antacids several times daily. He can add lidocaine to it if needed. No signs of heart or lung problems based on your EKG chest x-ray and troponin tests. Your liver and pancreas enzymes are normal. Consider possibility of heartburn or reflux. Consider possibility of gallbladder. Follow-up if persistent symptoms. Discharge Date/Time: 09/02/20 23:42
[2020-09-02] MEDS ORDERED: MAG HYDROX/AL HYDROX/SIMETH 30 ML UDC PO STA (21:53)
[2020-09-02] MEDS ORDERED: LIDOCAINE VISCOUS 2% 15 ML UDC MM STA (21:53)
[2020-09-02 23:33] VITALS: BP 110/88
== END 2020-09-02 23:42 | disposition home or self-care (01) ==
LOC: ED 20:38
DX: R07.89 Other chest pain (principal); K21.9 Gastro-esophageal reflux disease without esophagitis; Z79.82 Long term (current) use of aspirin
CPT/HCPCS: 36415; 71045; 80053; 83690; 84484; 85025; 93005; 99284; A9270

== ENCOUNTER 2020-12-24 11:38 | Outpatient (CLI) | payer OTHER, BC ==
--- NOTE | 2020-12-24 12:24 | XRAY Report ---
PROCEDURE: Knee 3 View LT INDICATIONS: LEFT KNEE,LT ANKLE,LT FOOT PAIN TECHNIQUE: 3 views of the left knee were acquired. COMPARISON: None. FINDINGS: Bones: No acute fractures or dislocations. No suspicious bony lesions. Soft tissues: No joint effusion. No suspicious soft tissue calcifications. IMPRESSION: No acute osseous abnormality. If there is clinical concern or persistent symptoms, addit ional imaging such as repeat radiographs or advanced imaging (e.g. CT, MRI) may be helpful for furthe r evaluation. Reviewed by: Desmond Reyes MD on 12/24/2020 12:23 PM PDT Approved by: Desmond Reyes MD on 12/24/2020 12:23 PM PDT Station ID: [id number]
--- NOTE | 2020-12-24 12:26 | XRAY Report ---
PROCEDURE: Ankle 3 View LT INDICATIONS: LEFT KNEE,LT ANKLE,LT FOOT PAIN TECHNIQUE: 3 views of the ankle were acquired. COMPARISON: None. FINDINGS: Bones: No acute fractures or dislocations. Ankle mortise is normally aligned. No suspicious bony l esions. A plantar calcaneal spur is seen. Soft tissues: No suspicious soft tissue calcification. IMPRESSION: No acute osseous abnormality. If there is clinical concern or persistent symptoms, addit ional imaging such as repeat radiographs or advanced imaging (e.g. CT, MRI) may be helpful for furthe r evaluation. Reviewed by: Desmond Reyes MD on 12/24/2020 12:25 PM PDT Approved by: Desmond Reyes MD on 12/24/2020 12:25 PM PDT Station ID: [id number]
--- NOTE | 2020-12-24 12:28 | XRAY Report ---
PROCEDURE: Foot 3 View LT INDICATIONS: LEFT KNEE,LT ANKLE,LT FOOT PAIN TECHNIQUE: 3 views of the foot were acquired. COMPARISON: None. FINDINGS: Bones: No acute fractures or dislocations. No suspicious bony lesions. There is mild hallux valgus . Mild degenerative changes are seen at the first metatarsophalangeal joint. Soft tissues: No suspicious soft tissue calcification. IMPRESSION: 1. No acute osseous abnormality. If there is clinical concern or persistent symptoms, additional victor m ging such as repeat radiographs or advanced imaging (e.g. CT, MRI) may be helpful for further evaluat ion. 2. Mild hallux valgus. Mild first metatarsophalangeal osteoarthrosis. Reviewed by: Desmond Reyes MD on 12/24/2020 12:27 PM PDT Approved by: Desmond Reyes MD on 12/24/2020 12:27 PM PDT Station ID: [id number]
== END 2020-12-24 11:39 | disposition home or self-care (01) ==
LOC: DI 11:38
PROVIDERS: ATTEND Physician Assistant Medical
DX: M25.562 Pain in left knee (principal); M25.572 Pain in left ankle and joints of left foot; M79.672 Pain in left foot; M77.32 Calcaneal spur, left foot; M19.072 Primary osteoarthritis, left ankle and foot; M20.12 Hallux valgus (acquired), left foot

== ENCOUNTER 2021-02-27 16:21 | Outpatient (CLI) | payer BC | END 2021-02-27 16:22 | disposition critical access hospital (66) | LOC: EMS 16:21 | DX: R07.9 Chest pain, unspecified (principal); R00.0 Tachycardia, unspecified | CPT/HCPCS: A0425; A0427 ==

== ENCOUNTER 2021-02-27 16:40 | Emergency (ER) | payer BC ==
--- NOTE | 2021-02-27 17:04 | ED Physician Documentation ---
History of Present Illness - Stated complaint Stated Complaint: CP - Chief complaint Chief Complaint: Cardiac - History obtained from History obtained from: Patient - History of Present Illness Timing: Today Pain level max: 0 Pain level now: 0 - Additonal information Additional information: Patient is a 60-year-old female who had an episode of SVT today. Has had SVT 2 other times in the past. She received 6 mg of adenosine with EMS and converted back to sinus rhythm. Currently asymptomatic. Nothing makes it better or worse. She is followed by cardiology at [facility]. 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, 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, Hysterectomy - Present Medications Home Medications: Ambulatory Orders Medication Instructions Recorded Confirmed buPROPion [Wellbutrin Sr] 450 mg PO DAILY 09/12/17 02/27/21 Metoprolol Succinate 25 mg PO DAILY 07/17/19 02/27/21 Pantoprazole [Protonix] 40 mg PO BID 07/17/19 02/27/21 Aspirin [Aspirin EC] 81 mg PO DAILY 09/02/20 02/27/21 Lidocaine Viscous 2% [Xylocaine 5 ml PO Q4H PRN #100 ml 09/02/20 02/27/21 Viscous 2%] Metoprolol Tartrate [Lopressor] 25 mg PO BID PRN #10 tablet 02/27/21 - Allergies Allergies/Adverse Reactions: Allergies Allergy/AdvReac Type Severity Reaction Status Date / Time No Known Drug Allergies Allergy Verified 02/27/21 16:43 - Social History Does the pt smoke?: No Smoking Status: Never smoker Does the pt drink ETOH?: Yes Does the pt have substance abuse?: No - Immunizations Immunizations are current?: Yes - POLST Patient has POLST: No PD ED PE NORMAL - Vitals Vital signs reviewed: Yes - General General: Alert and oriented X 3, No acute distress, Well developed/nourished - HEENT HEENT: Moist mucous membranes - Neck Neck: Supple, no meningeal sign - Cardiac Cardiac: RRR, Strong equal pulses - Respiratory Respiratory: No respiratory distress, Clear bilaterally - Abdomen Abdomen: Soft, Non tender, Non distended - Derm Derm: Warm and dry - Extremities Extremities: No edema, No calf tenderness / cord - Neuro Neuro: Alert and oriented X 3 - Psych Psych: Normal mood, Normal affect Results - Vitals Vitals: Vital Signs - 24 hr 02/27/21 02/27/21 16:44 17:06 Temperature 36.8 C Heart Rate 76 80 Respiratory 16 20 Rate Blood Pressure 116/76 O2 Saturation 98 98 Oxygen O2 Source Room air - EKG (time done) 1653 Rate: Rate (enter#) (79) Rhythm: NSR [place]: Normal, LAD Intervals: Normal GA, 2nd degree AVB type 1 Ischemia: T wave inversion Compare to prior EKG: Unchanged from prior EKG (09/02/20) PD MEDICAL DECISION MAKING - ED course Complexity details: reviewed old records, reviewed results, considered differential, d/w patient ED course: Patient with known SVT. Received adenosine with EMS and converted back to sinus rhythm. Asymptomatic. No indication for laboratory testing or x-ray. We will have her follow-up with her specialty development consultant for further care. Will prescribe as needed metoprolol for her palpitations. Patient counseled regarding signs and symptoms for which I believe and urgent re-evaluation would be necessary. Patient with good understanding of and agreement to plan and is comfortable going home at this time This document was made in part using voice recognition software. While efforts are made to proofread this document, sound alike and grammatical errors may occur. Departure - Departure Disposition: 01 Home, Self Care Clinical Impression: SVT (supraventricular tachycardia) Condition: Good Instructions: ED Tachycardia Pat PSVT Follow-Up: Marcela Robles PA-C [Primary Care Provider] - Within 1 week Prescriptions: Metoprolol Tartrate [Lopressor] 25 mg PO BID PRN #10 tablet PRN Reason: Tachycardia Comments: Follow-up with your doctor for further care. We have sent a prescription for short acting metoprolol as needed for SVT to [facility] in [place]. Follow-up with your doctor for further care. Discharge Date/Time: 02/27/21 17:20
[2021-02-27 17:08] VITALS: BP 116/76
== END 2021-02-27 17:20 | disposition home or self-care (01) ==
LOC: EDUNIT# → ED 16:40
DX: I47.1 Supraventricular tachycardia (principal)
CPT/HCPCS: 80053; 83690; 84484; 85025; 93005; 99283; 99284

== ENCOUNTER 2021-04-27 08:28 | Outpatient (CLI) | payer BC ==
[2021-04-27 08:43] LABS: BASOPHILS # (AUTO) 0.1 10^3/uL (0.0-0.1); BASOPHILS % (AUTO) 0.9 %; EOSINOPHILS # (AUTO) 0.3 10^3/uL (0.0-0.7); EOSINOPHILS % (AUTO) 3.6 %; HCT - HEMATOCRIT 39.9 % (37.0-47.0); LYMPHOCYTES # (AUTO) 2.6 10^3/uL (1.5-3.5); LYMPHOCYTES % (AUTO) 30.2 %; MEAN CORPUSCULAR HEMOGLOBIN 29.4 pg (27.0-31.0); MEAN CORPUSCULAR HGB CONC 32.6 g/dL (32.0-36.0); MEAN CORPUSCULAR VOLUME 90.3 fL (81.0-99.0); MEAN PLATELET VOLUME 9.7 fL (7.9-10.8); MONOCYTES # (AUTO) 0.7 10^3/uL (0.0-1.0); MONOCYTES % (AUTO) 7.8 %; NEUTROPHILS # (AUTO) 4.9 10^3/uL (1.5-6.6); NEUTROPHILS % (AUTO) 57.1 %; PLT - PLATELET COUNT 335 10^3/uL (130-450); RED BLOOD COUNT 4.42 10^6/uL (4.20-5.40); WHITE BLOOD COUNT 8.6 x10^3/uL (4.8-10.8)
[2021-04-27 08:56] LABS: ALBUMIN 3.9 g/dL (3.2-5.5); ALBUMIN/GLOBULIN RATIO 1.3 (1.0-2.2); BILIRUBIN,TOTAL 0.7 mg/dL (0.2-1.0); CALCIUM 9.3 mg/dL (8.5-10.3)
[2021-04-27 09:13] LABS: THYROID STIMULATING HORMONE 2.1 uIU/mL (0.34-5.60)
[2021-04-27 09:19] LABS: FERRITIN 20.7 ng/mL (11.0-306.8)
== END 2021-04-27 08:29 | disposition home or self-care (01) ==
LOC: LAB 08:28
PROVIDERS: ATTEND Physician Assistant Medical
DX: I47.1 Supraventricular tachycardia (principal)
CPT/HCPCS: 36415; 80053; 82728; 83735; 84443; 85025

== ENCOUNTER 2021-09-07 08:17 | Outpatient (CLI) | payer BC ==
[2021-09-07 09:03] LABS: ALBUMIN 3.9 g/dL (3.2-5.5); ALBUMIN/GLOBULIN RATIO 1.2 (1.0-2.2); ALKALINE PHOSPHATASE 70 IU/L (42-121); ALT ALANINE AMINOTRANSFERASE 19 IU/L (10-60); AST ASPARTATE AMINOTRANSFERASE 16 IU/L (10-42); BILIRUBIN,TOTAL 1.1 mg/dL (0.2-1.0); BUN - BLOOD UREA NITROGEN 19 mg/dL (6-20); CALCIUM 9.4 mg/dL (8.5-10.3); CARBON DIOXIDE - CO2 25 mmol/L (21-32); CHLORIDE 104 mmol/L (101-111); CHOL/HDL RATIO 3.5 (<4.4); CHOLESTEROL 219 mg/dL; GFR - MDRD 56 (>89); GLUCOSE 97 mg/dL (70-100); HDL CHOLESTEROL 62 mg/dL; LDL CHOLESTEROL,CALCULATED 141 mg/dL; LDL/HDL RATIO 2.3 (<4.4); POTASSIUM 4.1 mmol/L (3.5-5.0); SODIUM 136 mmol/L (135-145); TOTAL PROTEIN 7.2 g/dL (6.7-8.2); TRIGLYCERIDES 80 mg/dL; VLDL CHOLESTEROL 16 mg/dL
== END 2021-09-07 08:18 | disposition home or self-care (01) ==
LOC: LAB 08:17
PROVIDERS: ATTEND Nurse Practitioner Family
DX: E78.5 Hyperlipidemia, unspecified (principal); R03.0 Elevated blood-pressure reading, without diagnosis of hypertension; R73.9 Hyperglycemia, unspecified; Z82.49 Family history of ischemic heart disease and other diseases of the circulatory system
CPT/HCPCS: 36415; 80053; 80061; 83721

== ENCOUNTER 2021-10-10 10:58 | Outpatient (CLI) | payer BC ==
--- NOTE | 2021-10-11 08:32 | Mammography Report ---
BILATERAL DIGITAL SCREENING MAMMOGRAM 3D/2D: 10/10/2021 CLINICAL: Routine screening. Comparison is made to exams dated: 09/26/2017 mammogram, 06/09/2016 mammogram, 03/13/2016 mammogram, a nd 01/27/2013 mammogram - [facility]. The tissue of both breasts is predominantly f atty. No significant masses, calcifications, or other findings are seen in either breast. There has been no significant interval change. IMPRESSION: NEGATIVE There is no mammographic evidence of malignancy. A 1 year screening mammogram is recommended. This exam was interpreted at Station ID: [id number]. NOTE: For mammograms, a report in lay terms will be sent to the patient. Approximately 15% of breast malignancies will not be visualized mammographically. In the management of a palpable breast mass, a negative mammogram must not discourage biopsy of a clinically suspicious lesion. Electronically Signed By: Wes Mcconnell M.D., jr/kyle:10/10/2021 12:07:38 ACR BI-RADS Category 1: Negative 3341F PARENCHYMAL PATTERN: (F) - The breast(s) demonstrate(s) diffuse fatty replacement. BI-RADS CATEGORY: (1) - 1 RECOMMENDATION: (ANNUAL) - Recommend routine annual screening mammography. [id number] 1 year screening LATERALITY: (B)
== END 2021-10-10 10:59 | disposition home or self-care (01) ==
LOC: DI.N 10:58
DX: Z12.31 Encounter for screening mammogram for malignant neoplasm of breast (principal)

== ENCOUNTER 2021-12-10 08:00 | Outpatient (CLI) | payer BC ==
[2021-12-10 19:28] LABS: BASOPHILS # (AUTO) 0.1 10^3/uL (0.0-0.1); EOSINOPHILS # (AUTO) 0.3 10^3/uL (0.0-0.7); EOSINOPHILS % (AUTO) 3.1 %; HGB - HEMOGLOBIN 13.3 g/dL (12.0-16.0); LYMPHOCYTES # (AUTO) 2.8 10^3/uL (1.5-3.5); LYMPHOCYTES % (AUTO) 29.7 %; MEAN CORPUSCULAR HEMOGLOBIN 28.6 pg (27.0-31.0); MEAN CORPUSCULAR HGB CONC 31.7 g/dL (32.0-36.0); MEAN CORPUSCULAR VOLUME 90.3 fL (81.0-99.0); MEAN PLATELET VOLUME 10.6 fL (7.9-10.8); MONOCYTES # (AUTO) 0.7 10^3/uL (0.0-1.0); MONOCYTES % (AUTO) 7.3 %; NEUTROPHILS # (AUTO) 5.5 10^3/uL (1.5-6.6); NEUTROPHILS % (AUTO) 58.4 %; PLT - PLATELET COUNT 407 10^3/uL (130-450); RED BLOOD COUNT 4.65 10^6/uL (4.20-5.40); RED CELL DISTRIBUTION WIDTH 13.9 % (12.0-15.0); WHITE BLOOD COUNT 9.5 x10^3/uL (4.8-10.8)
[2021-12-10 19:43] LABS: CALCIUM 9.6 mg/dL (8.5-10.3); POTASSIUM 4.2 mmol/L (3.5-5.0)
== END 2021-12-10 23:59 | disposition home or self-care (01) ==
LOC: LAB.N 08:00
PROVIDERS: ATTEND Physician Assistant
DX: J31.2 Chronic pharyngitis (principal)
CPT/HCPCS: 36415; 80048; 84443; 85025; 87070

== ENCOUNTER 2021-12-27 08:00 | Outpatient (CLI) | payer BC ==
--- NOTE | 2021-12-28 20:11 | XRAY Report ---
PROCEDURE: Chest 2 View X-Ray INDICATIONS: CHRONIC LARYNGITIS TECHNIQUE: 2 view(s) of the chest. COMPARISON: Chest x-ray 11/19/2017 FINDINGS: Surgical changes and devices: None. Lungs and pleura: No pleural effusions or pneumothorax. Lungs are clear. Mediastinum: Mediastinal contours are normal. Heart size is enlarged. Bones and chest wall: No suspicious bony abnormalities. Soft tissues appear unremarkable. IMPRESSION: No acute pulmonary process. Reviewed by: Arleen Kelley MD on 12/28/2021 8:09 PM PDT Approved by: Arleen Kelley MD on 12/28/2021 8:09 PM PDT Station ID: [id number]
== END 2021-12-27 23:59 | disposition home or self-care (01) ==
LOC: DI.N 08:00
PROVIDERS: ATTEND Physician Assistant
DX: J37.0 Chronic laryngitis (principal)

== ENCOUNTER 2021-12-27 17:37 | Outpatient (CLI) | payer BC ==
[2021-12-27 21:04] LABS: INFECTIOUS MONONUCLEOSIS NEGATIVE (Negative)
== END 2021-12-27 17:38 | disposition home or self-care (01) ==
LOC: LAB.N 17:37
PROVIDERS: ATTEND Physician Assistant
DX: J37.0 Chronic laryngitis (principal)
CPT/HCPCS: 86308

== ENCOUNTER 2022-04-03 09:45 | Outpatient (CLI) | payer BC ==
[2022-04-03 13:55] VITALS: BP 124/78
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
== END 2022-04-03 09:46 | disposition home or self-care (01) ==
LOC: SC 09:45
PROVIDERS: ATTEND Nurse Practitioner Family
DX: G47.10 Hypersomnia, unspecified (principal); G47.8 Other sleep disorders; R06.83 Snoring; E66.9 Obesity, unspecified; I49.9 Cardiac arrhythmia, unspecified; Z68.32 Body mass index [BMI] 32.0-32.9, adult
CPT/HCPCS: 99202; 99212

== ENCOUNTER 2022-05-01 09:23 | Outpatient (CLI) | payer BC | END 2022-05-01 09:24 | disposition home or self-care (01) | LOC: SC 09:23 | PROVIDERS: ATTEND Internal Medicine Pulmonary Disease | DX: G47.33 Obstructive sleep apnea (adult) (pediatric) (principal); R09.02 Hypoxemia; E66.9 Obesity, unspecified; Z68.32 Body mass index [BMI] 32.0-32.9, adult | CPT/HCPCS: 95806 ==

== ENCOUNTER 2023-09-14 08:48 | Emergency (ER) | payer OTHER, BC ==
--- NOTE | 2023-09-14 10:50 | ED Physician Documentation ---
PD HPI UPPER EXT INJURY - Stated complaint Stated Complaint: FALL,RT ARM PX - Chief complaint Chief Complaint: Trauma Ext - History obtained from History obtained from: Patient - History of Present Illness Location: Right, Forearm Type of injury: Fall Where injury occurred: Work Timing - onset: Yesterday Timing - details: Abrupt onset, Still present Worsened by: Moving, Palpating Associated symptoms: Swelling, Discolored (bruised). 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 : None HEENT: Chronic sinusitis Psych: Depression Musculoskeletal: Osteoporosis Derm: None - Past Surgical History Past Surgical History: Yes General: Colonoscopy Ortho: Spine surgery /CUTTER HOT KNIFE: section, 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, Hysterectomy - Present Medications Home Medications: Ambulatory Orders Medication Instructions Recorded Confirmed buPROPion [Wellbutrin Sr] 450 mg PO DAILY 09/12/17 09/14/23 Metoprolol Succinate 25 mg PO DAILY 07/17/19 09/14/23 Pantoprazole [Protonix] 40 mg PO BID 07/17/19 09/14/23 Aspirin [Aspirin EC] 81 mg PO DAILY 09/02/20 09/14/23 Lidocaine Viscous 2% [Xylocaine 5 ml PO Q4H PRN #100 ml 09/02/20 09/14/23 Viscous 2%] Metoprolol Tartrate [Lopressor] 25 mg PO BID PRN #10 tablet 02/27/21 09/14/23 - Allergies Allergies/Adverse Reactions: Allergies Allergy/AdvReac Type Severity Reaction Status Date / Time No Known Drug Allergies Allergy Verified 09/14/23 09:32 - Social History Does the pt smoke?: No Smoking Status: Never smoker Does the pt drink ETOH?: Yes Does the pt have substance abuse?: No - Immunizations Immunizations are current?: Yes - POLST Patient has POLST: No PD ED PE NORMAL - Vitals Vital signs reviewed: Yes - General General: Alert and oriented X 3, No acute distress, Well developed/nourished - Derm Derm: Normal color, Warm and dry - Extremities Extremities: Other (Right mid forearm on the ulnar side with a localized bruising and swelling with tenderness. No obvious deformity. We can wellness nurse rn due to pain but still able to move it. X-ray without fracture.) - Neuro Neuro: No motor deficit, No sensory deficit Results - Vitals Vitals: Vital Signs - 24 hr 09/14/23 09/14/23 09:02 11:33 Temperature 36.5 C Heart Rate 78 65 Respiratory 18 16 Rate Blood Pressure 146/73 H 144/89 H O2 Saturation 98 100 Oxygen O2 Source Room air - Rads (name of study) right forearm Relevant Findings:: Prelim report reviewed, EMP independent interpretation of test (no fracture) PD Medical Decision Making - ED course Complexity details: considered differential (Fell at work with bruising of the forearm. Continue with pain and tenderness on the ulnar side. Concerned about fracture. X-ray done without any signs of bony abnormality. She will place an Savage wrap on that she has in her office.), d/w patient Departure - Departure Disposition: Home, Self Care Clinical Impression: Forearm contusion Condition: Stable Record reviewed to determine appropriate education?: Yes Instructions: ED Contusion Upper Ext Comments: Your x-ray is normal without any signs of fractures. Obviously of the soft tissue swelling and hematoma. Savage wrap and cool towels to the area today and then changing to warmth periodically to help absorb the hematoma faster over the next few days. Tylenol ibuprofen as needed for pains. Activity as tolerated. Forms: PCP List Discharge Date/Time: 09/14/23 11:34
--- NOTE | 2023-09-14 11:00 | XRAY Report ---
PROCEDURE: Forearm RT INDICATIONS: Trauma TECHNIQUE: 2 views of the forearm were acquired. COMPARISON: None. FINDINGS: Bones: No fractures or dislocations. No suspicious bony lesions. Soft tissues: No suspicious soft tissue calcifications or masses. Question small hematoma, dorsal a spect of the forearm. IMPRESSION: No acute bony abnormality. Question small superficial hematoma. Reviewed by: Ken Velasquez MD on 09/14/2023 10:59 AM [facility] Approved by: Ken Velasquez MD on 09/14/2023 10:59 AM [facility] Station ID: [id number]
[2023-09-14 11:39] VITALS: BP 144/89; O2SAT 100
== END 2023-09-14 11:34 | disposition home or self-care (01) ==
LOC: ED 08:48
DX: S50.11XA Contusion of right forearm, initial encounter (principal); W01.0XXA Fall on same level from slipping, tripping and stumbling without subsequent striking against object, initial encounter; Y92.89 Other specified places as the place of occurrence of the external cause; Y99.0 Civilian activity done for income or pay; E78.00 Pure hypercholesterolemia, unspecified; Z86.010 Personal history of colon polyps; Z79.82 Long term (current) use of aspirin; Z79.899 Other long term (current) drug therapy
CPT/HCPCS: 99283

== ENCOUNTER 2023-10-20 09:13 | Outpatient (CLI) | payer BC ==
[2023-10-20 18:43] LABS: BASOPHILS # (AUTO) 0.1 10^3/uL (0.0-0.1); BASOPHILS % (AUTO) 0.8 %; EOSINOPHILS # (AUTO) 0.2 10^3/uL (0.0-0.7); EOSINOPHILS % (AUTO) 2.2 %; HCT - HEMATOCRIT 47.5 % (37.0-47.0); LYMPHOCYTES # (AUTO) 2.2 10^3/uL (1.5-3.5); LYMPHOCYTES % (AUTO) 22.2 %; MEAN CORPUSCULAR HEMOGLOBIN 29.4 pg (27.0-31.0); MEAN CORPUSCULAR HGB CONC 31.6 g/dL (32.0-36.0); MEAN CORPUSCULAR VOLUME 93.1 fL (81.0-99.0); MEAN PLATELET VOLUME 10.5 fL (7.9-10.8); MONOCYTES # (AUTO) 0.8 10^3/uL (0.0-1.0); NEUTROPHILS # (AUTO) 6.5 10^3/uL (1.5-6.6); NEUTROPHILS % (AUTO) 66.4 %; PLT - PLATELET COUNT 353 10^3/uL (130-450); RED CELL DISTRIBUTION WIDTH 13.6 % (12.0-15.0); WHITE BLOOD COUNT 9.7 x10^3/uL (4.8-10.8)
[2023-10-20 19:13] LABS: ALBUMIN 4.1 g/dL (3.2-5.5); ALBUMIN/GLOBULIN RATIO 1.4 (1.0-2.2); ALKALINE PHOSPHATASE 71 IU/L (42-121); ALT ALANINE AMINOTRANSFERASE 12 IU/L (10-60); AST ASPARTATE AMINOTRANSFERASE 13 IU/L (10-42); BILIRUBIN,TOTAL 0.8 mg/dL (0.2-1.0); BUN - BLOOD UREA NITROGEN 11 mg/dL (6-20); CARBON DIOXIDE - CO2 28 mmol/L (21-32); CHLORIDE 105 mmol/L (101-111); CHOLESTEROL 211 mg/dL; CREATININE 0.9 mg/dL (0.6-1.3); GFR - MDRD 63 (>89); GLUCOSE 88 mg/dL (74-104); HDL CHOLESTEROL 53 mg/dL; LDL CHOLESTEROL,CALCULATED 140 mg/dL; LDL/HDL RATIO 2.6 (<4.4); POTASSIUM 4.3 mmol/L (3.5-4.5); SODIUM 137 mmol/L (135-145); TRIGLYCERIDES 90 mg/dL (48-352); VLDL CHOLESTEROL 18 mg/dL
[2023-10-20 19:22] LABS: THYROID STIMULATING HORMONE 1.41 uIU/mL (0.34-5.60)
== END 2023-10-20 09:14 | disposition home or self-care (01) ==
LOC: LAB.N 09:13
PROVIDERS: ATTEND Physician Assistant Medical
DX: Z00.00 Encounter for general adult medical examination without abnormal findings (principal); E78.5 Hyperlipidemia, unspecified
CPT/HCPCS: 36415; 80053; 80061; 83721; 84443; 85025

== ENCOUNTER 2023-11-12 12:54 | Outpatient (CLI) | payer BC ==
--- NOTE | 2023-11-13 10:11 | Mammography Report ---
BILATERAL DIGITAL SCREENING MAMMOGRAM 3D/2D: 11/12/2023 CLINICAL: Routine screening. Comparison is made to exams dated: 10/10/2021 mammogram, 09/26/2017 mammogram, 06/09/2016 mammogram, a nd 03/13/2016 mammogram - [facility]. Both breasts are almost entirely fatty (category a/<25% glandular tissue). No significant masses, calcifications, or other findings are seen in either breast. There has been no significant interval change. IMPRESSION: NEGATIVE There is no mammographic evidence of malignancy. A 1 year screening mammogram is recommended. Based on the Tyrer Cuzick model (a risk assessment model) the patient's lifetime risk is 3.2% and her 10 year risk is 1.5%. According to the ACR, ACS, and NCCN guidelines, an annual breast MRI exam allen g with mammogram is recommended if the patient's lifetime risk is 20% or greater. This exam was interpreted at Station ID: [id number]. NOTE: For mammograms, a report in lay terms will be sent to the patient. Approximately 15% of breast malignancies will not be visualized mammographically. In the management of a palpable breast mass, a negative mammogram must not discourage biopsy of a clinically suspicious lesion. Electronically Signed By: Wilber jaimes/kyle:11/12/2023 16:17:48 letter sent: No_Letter ACR BI-RADS Category 1: Negative 3341F PARENCHYMAL PATTERN: (F) - The breast(s) demonstrate(s) diffuse fatty replacement. BI-RADS CATEGORY: (1) - 1 RECOMMENDATION: (ANNUAL) - Recommend routine annual screening mammography. [id number] 1 year screening LATERALITY: (B)
== END 2023-11-12 12:55 | disposition home or self-care (01) ==
LOC: DI 12:54
DX: Z12.31 Encounter for screening mammogram for malignant neoplasm of breast (principal)

== ENCOUNTER 2023-11-23 16:45 | Outpatient (CLI) | payer BC ==
--- NOTE | 2023-11-26 16:52 | Ultrasound Report ---
PROCEDURE: Soft Tissue Head or Neck INDICATIONS: MULTINODULAR THYROID GOITER TECHNIQUE: Real-time scanning was performed of the thyroid gland, with image documentation. COMPARISON: Thyroid ultrasound 01/17/2019 FINDINGS: Right: Thyroid lobe measures 4.8 x 1.4 x 1.4 cm. Left: Thyroid lobe measures 5.5 x 1.9 x 1.7 cm Isthmus: 4 cm thick. Echotexture: Homogeneous. Nodule number: One Location: Right mid lobe Size: 0.5 x 0.6 x 0.3 cm compared to 0.5 x 0.6 x 0.3 cm. Composition: Solid. Echogenicity: Hypoechoic. Shape: wider than tall (0 points). Margins: Smooth (0 points). Echogenic foci: None (0 points). Total points: 4 ACR TI-RADS category: 4 Nodule number: Two Location: Left mid Size: 0.6 x 0.7 x 0.7 cm compared to 1.4 x 0.9 x 0.7 cm. Composition: Predominant cystic. Echogenicity: Anechoic. Shape: wider than tall (0 points). Margins: Smooth (0 points). Echogenic foci: None (0 points). Total points: 1 ACR TI-RADS category: 0 Nodule number: Three Location: Left inferior Size: 2.1 x 0.9 x 1.37 m compared to 2.2 x 1.1 x 1.6 cm. Composition: Solid. Echogenicity: Hypoechoic. Shape: wider than tall (0 points). Margins: Smooth (0 points). Echogenic foci: None (0 points). Total points: 4 ACR TI-RADS category: 4 IMPRESSION: Lesion 2 is considered category 0 and has decreased in size since 2019. No additional follow-up is re commended. 2. Lesions 1 and 3 are both considered category 4. They have been stable since 2019 and as below, no additional follow-up is recommended. ACR TI-RADS definitions and recommendations: TI-RADS 1 (benign): 0 points. FNA not needed. TI-RADS 2 (not suspicious): 2 points. FNA not needed. TI-RADS 3 (mildly suspicious): 3 points. "FNA if 2.5 cm or larger, follow up if 1.5 cm or larger (at 1, 3, and 5 years). TI-RADS 4 (moderately suspicious): 4-6 points. "FNA if 1.5 cm or larger, follow up if 1 cm or larger (at 1, 2, 3, and 5 years). TI-RADS 5 (highly suspicious): 7 points or more. "FNA if 1 cm or larger, follow up if 0.5 cm or larger (every year for 5 years). Reviewed by: Arleen Kelley MD on 11/26/2023 4:51 PM PDT Approved by: Arleen Kelley MD on 11/26/2023 4:51 PM PDT Station ID: [id number]
== END 2023-11-23 16:46 | disposition home or self-care (01) ==
LOC: DI 16:45
PROVIDERS: ATTEND Physician Assistant Medical
DX: E04.2 Nontoxic multinodular goiter (principal)

== ENCOUNTER 2023-12-31 09:49 | Outpatient (CLI) | payer BC ==
--- NOTE | 2023-12-31 12:22 | DEXA Report ---
PROCEDURE: Dexa Spine and/or Hip INDICATIONS: POST MENOPAUSAL TECHNIQUE: Dual energy x-ray absorptiometry (DXA) was performed on a [employer] System. Regions measur ed are the AP Spine, femoral neck, and if needed forearm. COMPARISON: 02/06/2019 FINDINGS: Lumbar Spine: Bone Mineral Density: 0.864 g/cm/cm,T score: -2.5. Since the most recent prior study, there has been a statistically significant increase in bone mineral density by 0.1 percent. Left Femoral Neck: Bone Mineral Density: 0.831 g/cm/cm, T score: -1.5. Left Hip: Bone Mineral Density: 0.865 g/cm/cm,T score: -1.1. Since the most recent prior study, there has been a statistically significant increase in bone mineral density by 0.7 percent. (T score greater or equal to -1.0: NORMAL) (T score from -1.1 to -2.4: OSTEOPENIA) (T score less than or equal to -2.5 to: OSTEOPOROSIS) Impression: By WHO criteria, this patient has osteoporosis. Interval statistical increase in bone mineral density of the lumbar spine. Interval statistical incre ase in bone mineral density of the hip. Patients with diagnosis of osteoporosis or osteopenia should have regular bone mineral density assess ment. For those eligible for Medicare, routine testing is allowed once every 2 years. Testing frequ ency can be increased for patients who have rapidly progressing disease or for those who are receivin g medical therapy to restore bone mass. Reviewed by: Jimy Weiss MD on 12/31/2023 12:20 PM PDT Approved by: Jimy Weiss MD on 12/31/2023 12:20 PM PDT Station ID: [id number]
== END 2023-12-31 09:50 | disposition home or self-care (01) ==
LOC: DI 09:49
PROVIDERS: ATTEND Physician Assistant Medical
DX: M81.0 Age-related osteoporosis without current pathological fracture (principal); Z78.0 Asymptomatic menopausal state